=== PATIENT | female | born 1970 | race Caucasian/White ===

== ENCOUNTER 2017-05-28 16:07 | Emergency (ER) | payer OTHER ==
[~2017-05-28] VITALS: Ht 157.5 cm; Wt 88.5 kg
[~2017-05-28 16:07] MED LIST: Amitriptyline H25 MG PO; CYCL10 PO; Esgic Tablet1 EACH PO; FLUSAL1005 INH; GUAI600T33 PO; IBUP600 PO; KETO10 PO; Norco 5-325 Ta1 EACH PO; Ventolin/Prove6.7 GM; Zofran8 MG PO
[2017-05-28 16:47] LABS: Source, Urine Clean Catch
[2017-05-28 16:53] LABS: Bilirubin, Urine Neg (Neg); Blood, Urine 5+ (Neg); Glucose Qualitative, Urine Neg (Neg); Ketones, Urine Neg (Neg); Leukocyte Esterase, Urine 3+ (Neg); Nitrite, Urine Neg (Neg); Protein, Urine 3+ (Neg); Urobilinogen, Urine NORM (Normal)
[2017-05-28 17:15] LABS: Appearance, Urine Hazy (Clear); Color, Urine Yellow (P-Yellow)
[2017-05-28 17:16] LABS: Red Blood Cells, Urine 25-50 /hpf (0-2); White Blood Cells, Urine TNTC /hpf (0-5)
[2017-05-28 17:17] LABS: Bacteria Few /hpf; Renal Epithelial Few /hpf (0-Rare); Squamous Epithelial Cells Few /hpf (Few)
[2017-05-28] MEDS ORDERED: Bactrim Ds Tab1 EACH PO (17:29)
[2017-05-28] MEDS ORDERED: Norco 5-325 Ta1 EACH PO (17:29)
[2017-05-29] MEDS ORDERED: AMIT25 PO (13:45)
[2017-05-29] MEDS ORDERED: MELO7.5 PO (13:45)
[2017-05-29] MEDS ORDERED: CIME400 PO (13:46)
[2017-05-29] MEDS ORDERED: PROGESTERONE (13:47)
[2017-05-29] MEDS ORDERED: ESTR2 PO (13:47)
== END 2017-05-28 17:42 | disposition home or self-care (01) ==
LOC: ER 16:07
PROVIDERS: Physician Assistant Medical
DX: N39.0 Urinary tract infection, site not specified (principal); Z79.899 Other long term (current) drug therapy; Z98.890 Other specified postprocedural states
CPT/HCPCS: 81000; 81001; 81025; 87077; 87086; 87186; 99283

== ENCOUNTER 2018-03-15 11:41 | Emergency (ER) | payer OTHER ==
[~2018-03-15] VITALS: Ht 157.5 cm; Wt 88.9 kg
[~2018-03-15 11:41] MED LIST changes: +AMIT25 PO; +Bactrim Ds Tab1 EACH PO; +CIME400 PO; +ESTR2 PO; +MELO7.5 PO; +PROGESTERONE
[2018-03-15 12:44] LABS: Source, Urine Clean Catch
[2018-03-15 12:47] LABS: Bilirubin, Urine Neg (Neg); Blood, Urine 5+ (Neg); Glucose Qualitative, Urine Neg (Neg); Ketones, Urine Neg (Neg); Leukocyte Esterase, Urine 1+ (Neg); Nitrite, Urine Neg (Neg); Protein, Urine Neg (Neg); Urobilinogen, Urine NORM (Normal)
[2018-03-15 13:01] LABS: Appearance, Urine Hazy (Clear); Color, Urine Yellow (P-Yellow)
[2018-03-15 13:03] LABS: Bacteria Rare /hpf; Red Blood Cells, Urine TNTC /hpf (0-2); Squamous Epithelial Cells Few /hpf (Few)
[2018-03-15 13:07] LABS: BASOPHILS ABSOLUTE AUTO 0.07 K/mm3 (0.00-0.23); BASOPHILS PERCENT AUTO 0 % (0-2); EOSINOPHILS ABSOLUTE AUTO 0.13 K/mm3 (0.00-0.68); EOSINOPHILS PERCENT AUTO 1 % (0-6); Hematocrit 46.9 % (33.0-51.0); Hemoglobin 14.9 g/dL (11.5-16.0); IMMATURE GRAN ABSOLUTE AUTO 0.06 K/mm3 (0.00-0.10); IMMATURE GRAN PERCENT AUTO 0 % (0-1); LYMPHOCYTES ABSOLUTE AUTO 2.53 K/mm3 (0.84-5.20); LYMPHOCYTES PERCENT AUTO 15 % (21-46); MONOCYTES ABSOLUTE AUTO 0.88 K/mm3 (0.16-1.47); MONOCYTES PERCENT AUTO 5 % (4-13); Mean Corpuscular HGB 26.7 pg (26.0-34.0); Mean Corpuscular HGB Conc 31.8 g/dL (31.5-36.5); Mean Corpuscular Volume 84 fL (80-100); Mean Platelet Volume 8.4 fL (9.1-12.4); NEUTROPHILS ABSOLUTE AUTO 13.82 K/mm3 (1.96-9.15); NEUTROPHILS PERCENT AUTO 79 % (41-73); Platelet Count 388 K/mm3 (150-400); RDW Coefficient Variation 14.5 % (11.7-14.2); RDW Standard Deviation 44.5 fL (35.1-46.3); Red Blood Cell Count 5.58 M/mm3 (3.80-5.20); White Blood Cell Count 17.49 K/mm3 (4.00-11.30)
[2018-03-15 13:50] LABS: Alanine Aminotransfer (ALT/SGP 22 U/L (12-78); Albumin, Blood 3.4 g/dL (3.4-5.0); Albumin/Globulin Ratio 0.6 (0.8-1.8); Alk Phos 102 U/L (50-136); Anion Gap 7 mmol/L (6-16); Aspartate Aminotrans (AST/SGOT 14 U/L (12-37); Blood Urea Nitrogen 14 mg/dL (8-24); Bun/Creatinine Ratio 20.7 (12.0-20.0); CO2, Blood 29 mmol/L (21-32); Chloride, Blood 103 mmol/L (98-108); Creatinine, Blood 0.68 mg/dL (0.40-1.00); Globulin, Blood 5.3 g/dL (2.2-4.0); Glomerular Filtration Rate >60 (60-); Glucose, Blood 119 mg/dL (70-99); Potassium, Blood 3.7 mmol/L (3.5-5.5); Sodium, Blood 139 mmol/L (136-145); Total Protein, Blood 8.7 g/dL (6.4-8.2)
[2018-03-15] MEDS ORDERED: KETO10 PO (17:00)
== END 2018-03-15 17:30 | disposition home or self-care (01) ==
LOC: ER 11:41
PROVIDERS: Emergency Medicine
DX: N93.9 Abnormal uterine and vaginal bleeding, unspecified (principal); R10.2 Pelvic and perineal pain; Z79.899 Other long term (current) drug therapy; Z79.51 Long term (current) use of inhaled steroids
CPT/HCPCS: 36415; 76830; 76856; 80053; 81001; 81025; 83690; 85025; 87086; 96361; 96374; 99284-25; J1885; J7030

== ENCOUNTER 2018-12-25 09:03 | Day surgery (SDC) | payer OTHER ==
[~2018-12-25] VITALS: Ht 157.5 cm; Wt 91.1 kg
--- NOTE | 2018-12-25 09:49 | NUR ---
12/25/18 0949 Sharonda Licona RN POKED 3 TIMES 2 UPPER R ARM DISAPEARED 3 WRIST L GOOD
[2019-03-13] MEDS ORDERED: MONT10T PO (12:16)
[2019-03-13] MEDS ORDERED: OMEP20ER PO (12:16)
== END 2018-12-25 11:10 | disposition home or self-care (01) ==
LOC: ORSCSDS 09:03
PROVIDERS: Internal Medicine Gastroenterology
PROC: 0D757ZZ Dilation of Esophagus, Via Natural or Artificial Opening (ICD-10-PCS; principal; 2018-12-25 10:30)
PROC: 0DB68ZX Excision of Stomach, Via Natural or Artificial Opening Endoscopic, Diagnostic (ICD-10-PCS; principal; 2018-12-25 10:30)
DX: R13.10 Dysphagia, unspecified (principal); K44.9 Diaphragmatic hernia without obstruction or gangrene; K21.9 Gastro-esophageal reflux disease without esophagitis; K29.70 Gastritis, unspecified, without bleeding; E66.9 Obesity, unspecified; Z68.36 Body mass index [BMI] 36.0-36.9, adult; Z79.899 Other long term (current) drug therapy
CPT/HCPCS: 88305; 88342; J2704; J7120

== ENCOUNTER 2018-12-31 19:43 | Emergency (ER) | payer OTHER ==
[~2018-12-31] VITALS: Ht 157.5 cm; Wt 90.7 kg
[2018-12-31] MEDS ORDERED: CYCL10 PO (21:01)
[2018-12-31] MEDS ORDERED: Flonase 0.05% N16 GM (21:01)
[2019-03-13] MEDS ORDERED: OMEP20ER PO (12:16)
[2019-03-13] MEDS ORDERED: MONT10T PO (12:16)
== END 2019-01-01 00:32 | disposition home or self-care (01) ==
LOC: ER 19:43
DX: T18.128A Food in esophagus causing other injury, initial encounter (principal); Z79.899 Other long term (current) drug therapy
CPT/HCPCS: 71250; 96374; 99284-25; J1610

== ENCOUNTER 2019-03-25 11:45 | Day surgery (SDC) | payer OTHER ==
[~2019-03-25] VITALS: Ht 157.5 cm; Wt 92.0 kg
[~2019-03-25 11:45] MED LIST changes: +Flonase 0.05% N16 GM; +MONT10T PO; +OMEP20ER PO
--- NOTE | 2019-03-25 12:27 | NUR ---
03/25/19 1227 Sharonda Licona 1 TRY LEFT BACK ARM NO FLASH SMALL VEIN
== END 2019-03-25 13:30 | disposition home or self-care (01) ==
LOC: ORSCSDS 11:45
DX: R13.10 Dysphagia, unspecified (principal); K21.9 Gastro-esophageal reflux disease without esophagitis; K29.70 Gastritis, unspecified, without bleeding; K44.9 Diaphragmatic hernia without obstruction or gangrene; K22.2 Esophageal obstruction; I10 Essential (primary) hypertension; J45.909 Unspecified asthma, uncomplicated; M79.7 Fibromyalgia; E66.01 Morbid (severe) obesity due to excess calories; Z68.37 Body mass index [BMI] 37.0-37.9, adult; Z79.899 Other long term (current) drug therapy
CPT/HCPCS: 88305; C1726; J2704; J7120

== ENCOUNTER 2019-12-08 11:26 | Day surgery (SDC) | payer OTHER ==
[~2019-12-08] VITALS: Ht 157.5 cm; Wt 93.9 kg
[~2019-12-08 11:26] MED LIST changes: +Ventolin/Prove6.7 GM INH
--- NOTE | 2019-12-08 12:30 | NUR ---
12/08/19 1229 Layo Avina FIRST IV ATTEMP IN LEFT HAND FAILED. VEIN BLEW. SECOND ATTEMPT IN RIGHT FOREARM FAILED. VEIN BLEW. PT TOW.
== END 2019-12-08 14:40 | disposition home or self-care (01) ==
LOC: ORSCSDS 11:26
PROVIDERS: Orthopaedic Surgery
PROC: 0SBC4ZZ Excision of Right Knee Joint, Percutaneous Endoscopic Approach (ICD-10-PCS; principal; 2019-12-08 13:25)
DX: S83.281A Other tear of lateral meniscus, current injury, right knee, initial encounter (principal); M65.9 Synovitis and tenosynovitis, unspecified; J45.909 Unspecified asthma, uncomplicated; K21.9 Gastro-esophageal reflux disease without esophagitis; E66.01 Morbid (severe) obesity due to excess calories; Z68.37 Body mass index [BMI] 37.0-37.9, adult; Z79.899 Other long term (current) drug therapy
CPT/HCPCS: A9270-GY; J0171; J0690; J7120

== ENCOUNTER 2020-05-05 10:00 | Emergency (ER) | payer OTHER ==
[~2020-05-05] VITALS: Ht 157.5 cm; Wt 95.2 kg
[~2020-05-05 10:00] MED LIST changes: +ECOTRIN325 MG PO
[2020-05-05] MEDS ORDERED: Ventolin/Prove6.7 GM INH (17:03)
[2020-05-05] MEDS ORDERED: DEXT30SU PO (17:03)
== END 2020-05-05 17:16 | disposition home or self-care (01) ==
LOC: ER 10:00
DX: J40 Bronchitis, not specified as acute or chronic (principal); Z20.828 Contact with and (suspected) exposure to other viral communicable diseases; Z79.899 Other long term (current) drug therapy
CPT/HCPCS: 71046; 99283-25; U0004

== ENCOUNTER 2020-05-13 05:37 | Emergency (ER) | payer OTHER ==
[~2020-05-13] VITALS: Ht 157.5 cm; Wt 95.2 kg
[~2020-05-13 05:37] MED LIST changes: +DEXT30SU PO
[2020-05-13 06:09] LABS: BASOPHILS ABSOLUTE AUTO 0.06 K/mm3 (0.00-0.23); BASOPHILS PERCENT AUTO 0 % (0-2); EOSINOPHILS ABSOLUTE AUTO 0.56 K/mm3 (0.00-0.68); EOSINOPHILS PERCENT AUTO 4 % (0-6); Hematocrit 44.9 % (33.0-51.0); Hemoglobin 13.9 g/dL (11.5-16.0); IMMATURE GRAN ABSOLUTE AUTO 0.03 K/mm3 (0.00-0.10); IMMATURE GRAN PERCENT AUTO 0 % (0-1); LYMPHOCYTES ABSOLUTE AUTO 4.54 K/mm3 (0.84-5.20); LYMPHOCYTES PERCENT AUTO 31 % (21-46); MONOCYTES ABSOLUTE AUTO 0.94 K/mm3 (0.16-1.47); MONOCYTES PERCENT AUTO 6 % (4-13); Mean Corpuscular HGB 24.8 pg (26.0-34.0); Mean Corpuscular Volume 80 fL (80-100); NEUTROPHILS ABSOLUTE AUTO 8.64 K/mm3 (1.96-9.15); NEUTROPHILS PERCENT AUTO 59 % (41-73); Platelet Count 370 K/mm3 (150-400); RDW Coefficient Variation 14.4 % (11.7-14.2); RDW Standard Deviation 41.7 fL (35.1-46.3); White Blood Cell Count 14.77 K/mm3 (4.00-11.30)
[2020-05-13 06:26] LABS: Alanine Aminotransfer (ALT/SGP 22 U/L (12-78); Albumin, Blood 3.3 g/dL (3.4-5.0); Albumin/Globulin Ratio 0.7 (0.8-1.8); Alk Phos 110 U/L (50-136); Anion Gap 5 mmol/L (6-16); Aspartate Aminotrans (AST/SGOT 15 U/L (12-37); Bilirubin, Total 0.5 mg/dL (0.1-1.0); Blood Urea Nitrogen 12 mg/dL (8-24); Bun/Creatinine Ratio 16.2 (12.0-20.0); CO2, Blood 26 mmol/L (21-32); Calcium, Blood 8.9 mg/dL (8.5-10.1); Chloride, Blood 107 mmol/L (98-108); Creatinine, Blood 0.74 mg/dL (0.40-1.00); Glomerular Filtration Rate >60 (60-); Glucose, Blood 128 mg/dL (70-99); Potassium, Blood 4.2 mmol/L (3.5-5.5); Sodium, Blood 138 mmol/L (136-145); Total Protein, Blood 8.3 g/dL (6.4-8.2)
[2020-05-13 06:59] LABS: Source, Urine Clean Catch
[2020-05-13] MEDS ORDERED: TAMS.4ER PO (07:01)
[2020-05-13] MEDS ORDERED: HYDR1TAB94 PO (07:01)
[2020-05-13 07:10] LABS: Bilirubin, Urine Neg (Neg); Blood, Urine 1+ (Neg); Glucose Qualitative, Urine Neg (Neg); Ketones, Urine Neg (Neg); Leukocyte Esterase, Urine Neg (Neg); Nitrite, Urine Neg (Neg); Protein, Urine 1+ (Neg); Urobilinogen, Urine NORM (Normal)
[2020-05-13 07:18] LABS: Appearance, Urine Hazy (Clear); Color, Urine Yellow (P-Yellow)
[2020-05-13 07:21] LABS: Red Blood Cells, Urine 0-2 /hpf (0-2)
[2020-05-13 07:22] LABS: Bacteria Mod /hpf; Squamous Epithelial Cells Few /hpf (Few)
== END 2020-05-13 08:57 | disposition home or self-care (01) ==
LOC: ER 05:37
PROVIDERS: Emergency Medicine
DX: N13.2 Hydronephrosis with renal and ureteral calculous obstruction (principal); Z79.899 Other long term (current) drug therapy
CPT/HCPCS: 36415; 74176; 80053; 81001; 83690; 85025; 87086; 93005; 93010; 96361; 96374; 96375; 99284-25; J1885; J2270; J2405; J3010; J7030

== ENCOUNTER 2020-06-28 17:00 | Emergency (ER) | payer OTHER ==
[~2020-06-28] VITALS: Ht 167.6 cm; Wt 74.8 kg
[~2020-06-28 17:00] MED LIST changes: +HYDR1TAB94 PO; +TAMS.4ER PO
[2020-06-28 17:40] LABS: BASOPHILS ABSOLUTE AUTO 0.06 K/mm3 (0.00-0.23); BASOPHILS PERCENT AUTO 0 % (0-2); EOSINOPHILS ABSOLUTE AUTO 0.42 K/mm3 (0.00-0.68); EOSINOPHILS PERCENT AUTO 3 % (0-6); Hematocrit 42.2 % (33.0-51.0); Hemoglobin 13.1 g/dL (11.5-16.0); IMMATURE GRAN ABSOLUTE AUTO 0.04 K/mm3 (0.00-0.10); IMMATURE GRAN PERCENT AUTO 0 % (0-1); LYMPHOCYTES ABSOLUTE AUTO 2.43 K/mm3 (0.84-5.20); LYMPHOCYTES PERCENT AUTO 17 % (21-46); MONOCYTES ABSOLUTE AUTO 0.82 K/mm3 (0.16-1.47); MONOCYTES PERCENT AUTO 6 % (4-13); Mean Corpuscular HGB 24.8 pg (26.0-34.0); Mean Corpuscular Volume 80 fL (80-100); Mean Platelet Volume 9.4 fL (9.1-12.4); NEUTROPHILS ABSOLUTE AUTO 10.53 K/mm3 (1.96-9.15); NEUTROPHILS PERCENT AUTO 74 % (41-73); Platelet Count 386 K/mm3 (150-400); RDW Coefficient Variation 14.6 % (11.7-14.2); RDW Standard Deviation 42.3 fL (35.1-46.3); Red Blood Cell Count 5.29 M/mm3 (3.80-5.20)
[2020-06-28 17:55] LABS: Troponin I <0.015 ng/mL (0.000-0.040)
[2020-06-28 17:57] LABS: Alanine Aminotransfer (ALT/SGP 19 U/L (12-78); Albumin, Blood 3.2 g/dL (3.4-5.0); Albumin/Globulin Ratio 0.7 (0.8-1.8); Alk Phos 101 U/L (50-136); Anion Gap 8 mmol/L (6-16); Aspartate Aminotrans (AST/SGOT 15 U/L (12-37); Bilirubin, Total 0.5 mg/dL (0.1-1.0); Blood Urea Nitrogen 13 mg/dL (8-24); Bun/Creatinine Ratio 21.7 (12.0-20.0); CO2, Blood 25 mmol/L (21-32); Calcium, Blood 9.3 mg/dL (8.5-10.1); Chloride, Blood 105 mmol/L (98-108); Globulin, Blood 4.7 g/dL (2.2-4.0); Glomerular Filtration Rate >60 (60-); Glucose, Blood 144 mg/dL (70-99); Potassium, Blood 3.8 mmol/L (3.5-5.5); Sodium, Blood 138 mmol/L (136-145); Total Protein, Blood 7.9 g/dL (6.4-8.2)
[2020-06-28] MEDS ORDERED: Zithromax250 MG PO (18:54)
[2020-06-28] MEDS ORDERED: Prednisone50 MG PO (18:54)
== END 2020-06-28 19:23 | disposition home or self-care (01) ==
LOC: ER 17:00
PROVIDERS: Emergency Medicine
DX: J18.9 Pneumonia, unspecified organism (principal); J45.909 Unspecified asthma, uncomplicated; Z79.899 Other long term (current) drug therapy
CPT/HCPCS: 71045; 80053; 84484; 85025; 93005; 93010; 99285-25; J7512

== ENCOUNTER 2020-07-03 13:30 | Emergency (ER) | payer OTHER ==
[~2020-07-03] VITALS: Ht 157.5 cm; Wt 93.9 kg
[~2020-07-03 13:30] MED LIST changes: +Prednisone50 MG PO; +Zithromax250 MG PO
[2020-07-03 15:01] LABS: Alanine Aminotransfer (ALT/SGP 19 U/L (12-78); Albumin, Blood 3.1 g/dL (3.4-5.0); Albumin/Globulin Ratio 0.7 (0.8-1.8); Alk Phos 92 U/L (50-136); Anion Gap 9 mmol/L (6-16); Aspartate Aminotrans (AST/SGOT 23 U/L (12-37); Bilirubin, Total 0.6 mg/dL (0.1-1.0); Blood Urea Nitrogen 18 mg/dL (8-24); Bun/Creatinine Ratio 23.3 (12.0-20.0); CO2, Blood 24 mmol/L (21-32); Calcium, Blood 8.4 mg/dL (8.5-10.1); Chloride, Blood 106 mmol/L (98-108); Creatinine, Blood 0.77 mg/dL (0.40-1.00); Globulin, Blood 4.4 g/dL (2.2-4.0); Glomerular Filtration Rate >60 (60-); Glucose, Blood 155 mg/dL (70-99); Potassium, Blood 3.8 mmol/L (3.5-5.5); Sodium, Blood 139 mmol/L (136-145); Total Protein, Blood 7.5 g/dL (6.4-8.2); Troponin I <0.015 ng/mL (0.000-0.040)
[2020-07-03 15:33] LABS: BASOPHILS ABSOLUTE AUTO 0.09 K/mm3 (0.00-0.23); BASOPHILS PERCENT AUTO 1 % (0-2); EOSINOPHILS PERCENT AUTO 2 % (0-6); Hematocrit 42.5 % (33.0-51.0); Hemoglobin 13.5 g/dL (11.5-16.0); IMMATURE GRAN ABSOLUTE AUTO 0.04 K/mm3 (0.00-0.10); IMMATURE GRAN PERCENT AUTO 0 % (0-1); LYMPHOCYTES ABSOLUTE AUTO 3.49 K/mm3 (0.84-5.20); LYMPHOCYTES PERCENT AUTO 26 % (21-46); MONOCYTES ABSOLUTE AUTO 0.57 K/mm3 (0.16-1.47); MONOCYTES PERCENT AUTO 4 % (4-13); Mean Corpuscular HGB 25.2 pg (26.0-34.0); Mean Corpuscular HGB Conc 31.8 g/dL (31.5-36.5); Mean Corpuscular Volume 79 fL (80-100); NEUTROPHILS ABSOLUTE AUTO 9.09 K/mm3 (1.96-9.15); NEUTROPHILS PERCENT AUTO 67 % (41-73); RDW Coefficient Variation 14.8 % (11.7-14.2); RDW Standard Deviation 42.8 fL (35.1-46.3); Red Blood Cell Count 5.36 M/mm3 (3.80-5.20); White Blood Cell Count 13.48 K/mm3 (4.00-11.30)
[2020-07-03 15:56] LABS: Mean Platelet Volume 9.6 fL (9.1-12.4); Platelet Count 411 K/mm3 (150-400)
== END 2020-07-03 17:20 | disposition home or self-care (01) ==
LOC: ER 13:30
PROVIDERS: Emergency Medicine
DX: J06.9 Acute upper respiratory infection, unspecified (principal); R07.81 Pleurodynia; Z79.52 Long term (current) use of systemic steroids; Z79.899 Other long term (current) drug therapy
CPT/HCPCS: 36415; 71045; 80053; 84484; 85025; 93005; 93010; 94640; 99285-25

== ENCOUNTER 2023-01-26 13:34 | Day surgery (SDC) | payer OTHER | END 2023-01-26 16:51 | disposition home or self-care (01) | LOC: ORSCSDS 13:34 | PROC: 0DB68ZX Excision of Stomach, Via Natural or Artificial Opening Endoscopic, Diagnostic (ICD-10-PCS; principal; 2023-01-26) | PROC: 0DB58ZX Excision of Esophagus, Via Natural or Artificial Opening Endoscopic, Diagnostic (ICD-10-PCS; principal; 2023-01-26) | PROC: 0D758ZZ Dilation of Esophagus, Via Natural or Artificial Opening Endoscopic (ICD-10-PCS; principal; 2023-01-26) | PROC: 0DJD8ZZ Inspection of Lower Intestinal Tract, Via Natural or Artificial Opening Endoscopic (ICD-10-PCS; 2023-01-26) | DX: R10.13 Epigastric pain (principal); R13.10 Dysphagia, unspecified; Z12.11 Encounter for screening for malignant neoplasm of colon; K22.2 Esophageal obstruction; K64.8 Other hemorrhoids; K44.9 Diaphragmatic hernia without obstruction or gangrene; K57.30 Diverticulosis of large intestine without perforation or abscess without bleeding; R00.1 Bradycardia, unspecified; Z79.899 Other long term (current) drug therapy ==

== ENCOUNTER 2023-04-14 09:37 | Inpatient (IN) | payer OTHER ==
[~2023-04-14] VITALS: Ht 157.5 cm; Wt 93.1 kg
[~2023-04-14 09:37] MED LIST changes: +ONDA4ODT MM; +Tessalon Perle100 MG PO
[2023-04-14 10:48] LABS: BASOPHILS ABSOLUTE AUTO 0.07 K/mm3 (0.00-0.23); BASOPHILS PERCENT AUTO 0 % (0-2); EOSINOPHILS ABSOLUTE AUTO 0.15 K/mm3 (0.00-0.68); EOSINOPHILS PERCENT AUTO 1 % (0-6); Hematocrit 47.4 % (33.0-51.0); Hemoglobin 15.6 g/dL (11.5-16.0); IMMATURE GRAN ABSOLUTE AUTO 0.08 K/mm3 (0.00-0.10); IMMATURE GRAN PERCENT AUTO 1 % (0-1); LYMPHOCYTES PERCENT AUTO 14 % (21-46); MONOCYTES ABSOLUTE AUTO 0.64 K/mm3 (0.16-1.47); MONOCYTES PERCENT AUTO 4 % (4-13); Mean Corpuscular HGB 27.2 pg (26.0-34.0); Mean Corpuscular HGB Conc 32.9 g/dL (31.5-36.5); Mean Corpuscular Volume 83 fL (80-100); Mean Platelet Volume 9.3 fL (9.1-12.4); NEUTROPHILS ABSOLUTE AUTO 14.42 K/mm3 (1.96-9.15); NEUTROPHILS PERCENT AUTO 81 % (41-73); Platelet Count 350 K/mm3 (150-400); RDW Coefficient Variation 13.1 % (11.7-14.2); RDW Standard Deviation 39.2 fL (35.1-46.3); Red Blood Cell Count 5.73 M/mm3 (3.80-5.20); White Blood Cell Count 17.76 K/mm3 (4.00-11.30)
[2023-04-14 11:10] LABS: Albumin, Blood 3.7 g/dL (3.4-5.0); Albumin/Globulin Ratio 0.7 (0.8-1.8); Bilirubin, Total 1.1 mg/dL (0.1-1.0); Bun/Creatinine Ratio 19.3 (12.0-20.0); Creatinine, Blood 0.68 mg/dL (0.40-1.00); Potassium, Blood 3.4 mmol/L (3.5-5.5); Total Protein, Blood 8.7 g/dL (6.4-8.2)
[2023-04-14 14:45] VITALS: BP 165/81
[2023-04-14 16:27] LABS: Anti-Xa UFH, PHA Monitoring <0.10 IU/mL; Prothrombin Time Results 10.5 Sec (9.7-11.5)
[2023-04-14 16:34] LABS: CHOL/HDL RATIO 3.2; Cholesterol 161 mg/dL (50-200); HDL Cholesterol 50 mg/dL (>39); Low Density Lipoprotein Chol 100 mg/dL (0-110); Triglycerides 56 mg/dL (30-160); Very Low Density Lipoprot Chol 11 mg/dL (6-32)
--- NOTE | 2023-04-14 17:45 | NUR ---
SHIFT SUMMARY Pt remains A&Ox3 this shift. VSS. SB with inverter T wave, 1st degree AVB, BBB and prolong QTC per [employer] that has spoken to Dr. Dsouza. Dr. Dsouza at bedside to review POC with pt. Pt to remain NPO. Cardiac cath in am. Consent signed. Heparin gtt infusing as ordered. Loading dose of Plavix given. Pt up to bathroom with SBA. Pain and safety maintained. No further c/o chest pain. Pt instructed to call RN if any sx arise.
[2023-04-14 19:28] VITALS: BP 137/75
[2023-04-15] VITALS (12 sets, daily range): BP systolic 120–142; BP diastolic 67–74
--- NOTE | 2023-04-15 03:40 | NUR ---
SHIFT SUMMARY A/OX4. ROOM AIR. TELE MONITORS CALLED TO NOTIFY HEART RATE INTERMITTENTLY DROPS TO MID 40'S BUT IS SITTING IN THE 50'S. PATIENTS HEART RATE DROPPED TO 38 AT THE LOWEST DURING A VAGAL EPISODE DUE TO VOMITING. I WAS IN THE ROOM DURING THIS DROP. EMESIS IN GREEN IN COLOR. PT DID NOT WANT PRN ZOFRAN, STATES IT GAVE HER A BAD HEADACHE PRIOR. PT IS NPO. WAS ABLE TO SWALLOW PO MEDS AND HOLD DOWN. HEPARIN DRIP CONTINUED AT SAME RATE PER PHARMACY. NTROGLYCERIN PASTE REMOVED FROM LEFT ARM AND PLACED ON RIGHT ARM, WILL PUT BACK TO LEFT SIDE IN EARLY AM. CALL LIGHT IN REACH. NONSKID SOCKS ON. EDUCATED PATIENT TO CALL FOR ASSISTANCE UP TO BATHROOM DUE TO DIZZINESS.
[2023-04-15 05:16] LABS: BASOPHILS ABSOLUTE AUTO 0.03 K/mm3 (0.00-0.23); BASOPHILS PERCENT AUTO 0 % (0-2); EOSINOPHILS ABSOLUTE AUTO 0.01 K/mm3 (0.00-0.68); EOSINOPHILS PERCENT AUTO 0 % (0-6); Hematocrit 41.8 % (33.0-51.0); Hemoglobin 13.8 g/dL (11.5-16.0); IMMATURE GRAN ABSOLUTE AUTO 0.06 K/mm3 (0.00-0.10); IMMATURE GRAN PERCENT AUTO 0 % (0-1); LYMPHOCYTES ABSOLUTE AUTO 1.56 K/mm3 (0.84-5.20); LYMPHOCYTES PERCENT AUTO 9 % (21-46); MONOCYTES PERCENT AUTO 4 % (4-13); Mean Corpuscular HGB 27.3 pg (26.0-34.0); Mean Corpuscular Volume 83 fL (80-100); Mean Platelet Volume 9.3 fL (9.1-12.4); NEUTROPHILS ABSOLUTE AUTO 14.27 K/mm3 (1.96-9.15); NEUTROPHILS PERCENT AUTO 86 % (41-73); Platelet Count 326 K/mm3 (150-400); RDW Coefficient Variation 13.2 % (11.7-14.2); RDW Standard Deviation 39.8 fL (35.1-46.3); Red Blood Cell Count 5.05 M/mm3 (3.80-5.20); White Blood Cell Count 16.63 K/mm3 (4.00-11.30)
[2023-04-15 05:43] LABS: Albumin, Blood 3.2 g/dL (3.4-5.0); Albumin/Globulin Ratio 0.7 (0.8-1.8); Bilirubin, Total 0.8 mg/dL (0.1-1.0); Bun/Creatinine Ratio 19.6 (12.0-20.0); Calcium, Blood 8.9 mg/dL (8.5-10.1); Creatinine, Blood 0.61 mg/dL (0.40-1.00); Globulin, Blood 4.5 g/dL (2.2-4.0); Magnesium, Blood 2.2 mg/dL (1.6-2.4); Potassium, Blood 3.9 mmol/L (3.5-5.5); Total Protein, Blood 7.7 g/dL (6.4-8.2)
--- NOTE | 2023-04-15 06:25 | NUR ---
PATIENT AMBULATED TO BATHROOM AND BACK TO URINATE. HAD ANOTHER EPISODE OF VOMITING A SMALL AMOUNT OF YELLOWISH FLUID. DENIES CHEST PAIN AT THIS TIME. DENIES SOB. DOES NOT WANT ZOFRAN.
--- NOTE | 2023-04-15 08:33 | NUR ---
laborer cook house staff here to transfer pt for cardiac cath then transfer to PCU4
--- NOTE | 2023-04-15 10:27 | NUR ---
NURSING PCU DAYSHIFT: Assumed care of pt at approx 0930. Arrived from HC via w/c accompanied by HC staff x2. Xfer w/SBA to unit bed. Denies dizziness/light headedness at rest or w/repositioning. No c/o Pain. R radial insertion site w/TR band in place, site stable w/no bleed/hematoma noted. Tele in place, [place] I w/2:1 AV conduction, HR 30-40's, no c/o CP/pressure, SBP 120's, no noted edema. L/S cta t/o, c/o chronic dyspnea w/exertion, respirations shallow, occ dry/[employer] cough, O2 sat low to mid 90's on RA. Abd SNT, no N/V, BT+, voiding w/o difficulty per pt. PIV x1, s/l. No s/s of acute distress at this time. Family at bedside. Pt oriented to unit and plan of care discussed. Questions answered, pt/family deny any further questions/needs at this time. EKG completed and reviewed by crane service technician. Cont to monitor for any changes.
--- NOTE | 2023-04-15 18:04 | NUR ---
NURSING PCU DAYSHIFT COBRA TRANSFER SUMMARY: At approx 1130, tele patches changed by JUAN M Gilbert. Pt had no nuero changes present at that time, able to converse and interact w/staff and family. At approx 1200 this RN entered room to begin deflating TR band, ECHO in progress during that time. Pt was noted to have rhythmic head movements and was not verbally answering questions. Room light turned on and pt was noted to be drooling and R ext's flaccid. Call placed to physician, stat head CT w/o contrast completed. Results reviewed by attending and images pushed to [facility]. Head/Neck CTA then completed, results again reviewed and images pushed to [facility]. [facility] physician accepted pt for intervention, telephone report given to accepting RN, and pt xferred via rotar wing transport at approx 1630. Family remained at bedside t/o this process and remained included in discussions and plans of care. Kept up to date about medical condition and treatment plan. Denied any questions at time of xfer, contact information provided to family. Prior to COBRA, TR band was recovered w/o difficulty, wrist board remained in place, TR band and syringe sent with transport.
== END 2023-04-15 16:30 | disposition short-term general hospital (02) | DRG 280 ==
LOC: ER 09:37 → MEDS 09:38 → PCU 04-15 08:42
PROVIDERS: Emergency Medicine; ADMIT Internal Medicine
PROC: B2111ZZ Fluoroscopy of Multiple Coronary Arteries using Low Osmolar Contrast (ICD-10-PCS; principal; 2023-04-15)
PROC: 4A023N7 Measurement of Cardiac Sampling and Pressure, Left Heart, Percutaneous Approach (ICD-10-PCS; 2023-04-15)
PROC: B2151ZZ Fluoroscopy of Left Heart using Low Osmolar Contrast (ICD-10-PCS; 2023-04-15)
PROC: B24BZZZ Ultrasonography of Heart with Aorta (ICD-10-PCS; 2023-04-15)
DX: I21.4 Non-ST elevation (NSTEMI) myocardial infarction (principal); I63.512 Cerebral infarction due to unspecified occlusion or stenosis of left middle cerebral artery; I63.542 Cerebral infarction due to unspecified occlusion or stenosis of left cerebellar artery; I51.81 Takotsubo syndrome; R47.01 Aphasia; E87.6 Hypokalemia; J44.9 Chronic obstructive pulmonary disease, unspecified; K44.9 Diaphragmatic hernia without obstruction or gangrene; E04.1 Nontoxic single thyroid nodule; I44.1 Atrioventricular block, second degree; I10 Essential (primary) hypertension; E78.5 Hyperlipidemia, unspecified; K21.9 Gastro-esophageal reflux disease without esophagitis; G51.0 Bell's palsy; E66.9 Obesity, unspecified; R13.13 Dysphagia, pharyngeal phase; G83.21 Monoplegia of upper limb affecting right dominant side; Z68.37 Body mass index [BMI] 37.0-37.9, adult
CPT/HCPCS: 36415; 70450; 70496; 70498; 71045; 76937; 80053; 80061; 83036; 83690; 83735; 84484; 85025; 85520; 85610; 85730; 93005; 93010; 93306; 93458; 94760; 96361; 96374; 96375; 99152; 99153; 99285-25; A9270; C1769; C1887; C1894; G0378; J0461; J0780; J1200; J1644; J2250; J2405; J3010; J7030; J7050; Q9967